=== PATIENT | female | born 1930 | race Caucasian/White ===

== ENCOUNTER 2018-07-26 11:53 | Observation (INO) | payer MEDICARE, BC ==
--- NOTE | 2018-07-26 12:07 | EDM.PDOC ---
ED HPI GENERAL MEDICAL PROBLEM - General Stated Complaint: CHEST TIGHTNESS Time Seen by Provider: 07/26/18 11:53 Source of Information: Reports: Patient, Family History Limitations: Reports: No Limitations - History of Present Illness INITIAL COMMENTS - FREE TEXT/NARRATIVE: 88 y.o.w.f with a h/o HTN cama to the ed with her family due to SSCP since 3 am. Pt rated her pressure about 8/10 Her BP ws 178/99 on arrival. No N/V/D or diaphoresis. Pt has EST 6 years ago which was neg. She had a cardiac echo as well. Pt states, the pain is inside her chest, constant. Pt denied any trauma. takes her meds as recommended. No N/V/d or dizziness or any other acute medical issues. 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: Reports: Acetaminophen chest pressure Pain Score (Numeric/FACES): 3 - Related Data Allergies Allergy/AdvReac Type Severity Reaction Status Date / Time No Known Allergies Allergy Verified 07/26/18 13:45 Home Meds: Home Meds ALPRAZolam [Alprazolam] 0.5 mg PO BEDTIME PRN 07/26/18 [History] Acetaminophen [Tylenol Extra Strength] 1,000 mg PO Q6HR PRN 07/26/18 [History] Aspirin [Adult Low Dose Aspirin EC] 81 mg PO DAILY 07/26/18 [History] Celecoxib 100 mg PO BID 07/26/18 [History] Docusate Sodium [Colace] 200 mg PO BEDTIME 07/26/18 [History] Gabapentin [Neurontin] 300 mg PO DAILY 07/26/18 [History] Gabapentin [Neurontin] 600 mg PO BEDTIME 07/26/18 [History] Hydrocortisone [Hydrocortisone 2.5% Crm] 1 applic TOP BID 07/26/18 [History] L.acidoph,Paracasei, B.lactis [Probiotic] 1 cap PO DAILY 07/26/18 [History] Losartan [Cozaar] 25 mg PO DAILY 07/26/18 [History] Magnesium 250 mg PO DAILY 07/26/18 [History] Metoprolol Succinate [Toprol XL] 25 mg PO DAILY 07/26/18 [History] [place]-3/DHA/Epa/Fish Oil [[place]-3 Fish Oil 1,000 MG Sfgl] 1,000 mg PO DAILY 08/04 [History] Omeprazole 40 mg PO DAILY 07/26/18 [History] Polyethylene Glycol 3350 [MiraLAX] 17 gm PO DAILY PRN 07/26/18 [History] amLODIPine [Norvasc] 2.5 mg PO DAILY 07/26/18 [History] atorvaSTATin [Lipitor] 40 mg PO BEDTIME 07/26/18 [History] ED ROS GENERAL - Review of Systems Review Of Systems: See Below Constitutional: Reports: No Symptoms HEENT: Reports: No Symptoms Respiratory: Reports: No Symptoms Cardiovascular: Reports: Chest Pain Endocrine: Reports: No Symptoms GI/Abdominal: Reports: No Symptoms : Reports: No Symptoms Musculoskeletal: Reports: No Symptoms Skin: Reports: No Symptoms Neurological: Reports: No Symptoms Psychiatric: Reports: No Symptoms Hematologic/Lymphatic: Reports: No Symptoms Immunologic: Reports: No Symptoms ED EXAM, GENERAL - Physical Exam Exam: See Below Exam Limited By: No Limitations General Appearance: Alert, WD/WN, Mild Distress Eye Exam: Bilateral Eye: Normal Inspection Ears: Normal External Exam Ear Exam: Bilateral Ear: Auricle Normal Nose: Normal Inspection, Normal Mucosa Throat/Mouth: Normal Inspection, Normal Lips, Normal Gums, Normal Voice, No Airway Compromise Head: Atraumatic, Normocephalic Neck: Normal Inspection, Supple, Non-Tender, Full Range of Motion Respiratory/Chest: No Respiratory Distress, Lungs Clear, Normal Breath Sounds, No Accessory Muscle Use, Chest Non-Tender Cardiovascular: Normal Peripheral Pulses, Regular Rate, Rhythm, No Edema, No Gallop, No JVD, No Murmur, No Rub GI/Abdominal: Normal Bowel Sounds, Soft, Non-Tender, No Organomegaly, No Distention, No Abnormal Bruit, No Mass, Pelvis Stable (Female) Exam: Deferred Rectal (Female) Exam: Deferred Back Exam: Normal Inspection, Full Range of Motion Extremities: Normal Inspection, Normal Range of Motion, Non-Tender, No Pedal Edema, Normal Capillary Refill Neurological: Alert, Oriented, CN II-XII Intact, Normal Cognition, Normal Gait, Normal Reflexes, No Motor/Sensory Deficits Psychiatric: Normal Affect, Normal Mood Skin Exam: Warm, Dry, Intact, Normal Color, No Rash Lymphatic: No Adenopathy EKG INTERPRETATION EKG Date: 07/26/18 Time: 12:00 Rhythm: NSR Rate (Beats/Min): 76 [place]: Normal P-Wave: Present QRS: Normal ST-T: Normal QT: Normal Comparison: NA - No Prior EKG EKG Interpretation Comments: peaked T waves Course - Vital Signs Text/Narrative:: 88 y.o.w.f with a h/o HTN cama to the ed with her family due to SSCP since 3 am. Pt rated her pressure about 8/10 Her BP ws 178/99 on arrival. No N/V/D or diaphoresis. Pt has EST 6 years ago which was neg. She had a cardiac echo as well. Pt states, the pain is inside her chest, constant. Pt denied any trauma. takes her meds as recommended. No N/V/d or dizziness or any other acute medical issues. BP 165/66 RR 18 Pulse ox 98 Temp 36.8 pulse 83 PE: WNWD W F with chest pressure Imaging: CXR port: NAD Labs: CBC, BMP (Na was 132!) and Troponin were nl ECG: Peaked t waves (?) Impression: Unstable angina Tx: ASA and NTD paste Reexam: CP subsided, BP still 164/78 on admission 12.55 pm Consultation: Dr. Salomon, Hospitalist: admit for obs, no Lovenox yet Plan: Admit for obs Last Recorded V/S: Last Vital Signs Temp 36.4 C 07/26/18 23:47 Pulse 64 07/26/18 23:47 Resp 15 07/26/18 23:47 BP 123/49 L 07/26/18 23:47 Pulse Ox 96 07/26/18 23:47 - Orders/Labs/Meds Orders: Active Orders 24 hr Category Date Time Status CXR [Chest 1V Frontal] [CR] Stat Exams 07/26/18 11:59 Taken EKG 12 Lead [EK] Routine Ther 07/26/18 11:59 Ordered Medication Orders Acetaminophen (Tylenol Extra Strength) 1,000 mg PO Q6H PRN PRN Reason: Pain Alprazolam (Xanax) 0.5 mg PO BEDTIME PRN PRN Reason: Sleep Last Admin: 07/26/18 21:27 Dose: 0.5 mg Amlodipine Besylate (Norvasc) 2.5 mg PO DAILY [facility] Aspirin (Halfprin) 81 mg PO DAILY [facility] Atorvastatin Calcium (Lipitor) 40 mg PO BEDTIME BERNY Last Admin: 07/26/18 20:03 Dose: 40 mg Celecoxib (Celebrex) 100 mg PO BID BERNY Last Admin: 07/26/18 20:03 Dose: Docusate Sodium (Colace) 200 mg PO BEDTIME BERNY Last Admin: 07/26/18 20:03 Dose: Gabapentin (Neurontin) 300 mg PO DAILY BERNY Gabapentin (Neurontin) 600 mg PO BEDTIME [facility] Last Admin: 07/26/18 20:03 Dose: 600 mg Hydrocortisone (Hydrocortisone 2.5% Crm) 0 gm TOP BID [facility] Last Admin: 07/26/18 20:03 Dose: Losartan Potassium (Cozaar) 25 mg PO DAILY [facility] Metoprolol Succinate (Toprol Xl) 25 mg PO DAILY [facility] Non-Formulary Medication (L.Acidoph,Paracasei, B.Lactis [Probiotic]) 1 cap PO DAILY [facility] Non-Formulary Medication (Magnesium [Magnesium]) 250 mg PO DAILY [facility] Non-Formulary Medication ([place]-3/Dha/Epa/Fish Oil [[place]-3 Fish Oil 1,000 Mg Sfgl]) 1,000 mg PO DAILY [facility] Non-Formulary Medication (Omeprazole [Omeprazole]) 40 mg PO DAILY [facility] Ondansetron HCl (Zofran Odt) 4 mg PO Q4H PRN PRN Reason: nausea, able to take PO Polyethylene Glycol (Miralax) 17 gm PO DAILY PRN PRN Reason: Constipation Labs: Laboratory Tests 07/26/18 07/26/18 07/26/18 Range/Units 12:10 12:10 12:10 WBC 8.5 (4.5-12.0) X10-3/uL RBC 4.60 (3.23-5.20) x10(6)uL Hgb 13.6 (11.5-15.5) g/dL Hct 40.7 (30.0-51.3) % MCV 88.6 (80-96) fL MCH 29.6 (27.7-33.6) pg MCHC 33.4 (32.2-35.4) g/dL RDW 13.0 (11.5-15.5) % Plt Count 269 (125-369) X10(3)uL MPV 8.4 (7.4-10.4) fL Neut % (Auto) 45.7 L (46-82) % Lymph % (Auto) 41.9 H (13-37) % [place] % (Auto) 8.5 (4-12) % Eos % (Auto) 3 (1.0-5.0) % Baso % (Auto) 1 (0-2) % Neut # (Auto) 3.8 (1.6-8.3) # Lymph # (Auto) 3.6 (0.6-5.0) # [place] # (Auto) 0.7 (0.0-1.3) # Eos # (Auto) 0.3 (0.0-0.8) # Baso # (Auto) 0.1 (0.0-0.2) # PT 9.3 (8.7-11.1) INR 0.96 (0.89-1.13) Sodium 132 L (135-145) mmol/L Potassium 4.0 (3.5-5.3) mmol/L Chloride 99 L (100-110) mmol/L Carbon Dioxide 28 (21-32) mmol/L BUN 6 L (7-18) mg/dL Creatinine 0.7 (0.55-1.02) mg/dL Est Cr Clr Drug Dosing TNP Estimated GFR (MDRD) > 60 (>60) BUN/Creatinine Ratio 8.6 L (9-20) Glucose 112 (80-116) mg/dL Calcium 9.0 (8.6-10.2) mg/dL Troponin I (<0.017-0.056) ng/mL 07/26/18 Range/Units 12:10 WBC (4.5-12.0) X10-3/uL RBC (3.23-5.20) x10(6)uL Hgb (11.5-15.5) g/dL Hct (30.0-51.3) % MCV (80-96) fL MCH (27.7-33.6) pg MCHC (32.2-35.4) g/dL RDW (11.5-15.5) % Plt Count (125-369) X10(3)uL MPV (7.4-10.4) fL Neut % (Auto) (46-82) % Lymph % (Auto) (13-37) % [place] % (Auto) (4-12) % Eos % (Auto) (1.0-5.0) % Baso % (Auto) (0-2) % Neut # (Auto) (1.6-8.3) # Lymph # (Auto) (0.6-5.0) # [place] # (Auto) (0.0-1.3) # Eos # (Auto) (0.0-0.8) # Baso # (Auto) (0.0-0.2) # PT (8.7-11.1) INR (0.89-1.13) Sodium (135-145) mmol/L Potassium (3.5-5.3) mmol/L Chloride (100-110) mmol/L Carbon Dioxide (21-32) mmol/L BUN (7-18) mg/dL Creatinine (0.55-1.02) mg/dL Est Cr Clr Drug Dosing Estimated GFR (MDRD) (>60) BUN/Creatinine Ratio (9-20) Glucose (80-116) mg/dL Calcium (8.6-10.2) mg/dL Troponin I < 0.017 L (<0.017-0.056) ng/mL Meds: Medications Generic Name Dose Route Start Last Admin Trade Name Freq PRN Reason Stop Dose Admin Acetaminophen 1,000 mg 07/26/18 18:46 Tylenol Extra Strength PO Q6H PRN Pain Alprazolam 0.5 mg 07/26/18 18:46 07/26/18 21:27 Xanax PO 0.5 mg BEDTIME PRN Administration Sleep Amlodipine Besylate 2.5 mg 07/27/18 09:00 Norvasc PO DAILY BERNY Aspirin 81 mg 07/27/18 09:00 Halfprin PO DAILY BERNY Atorvastatin Calcium 40 mg 07/26/18 21:00 07/26/18 20:03 Lipitor PO 40 mg BEDTIME BERNY Administration Celecoxib 100 mg 07/26/18 21:00 07/26/18 20:03 Celebrex PO Not Given BID BERNY Docusate Sodium 200 mg 07/26/18 21:00 07/26/18 20:03 Colace PO Not Given BEDTIME BERNY Gabapentin 300 mg 07/27/18 09:00 Neurontin PO DAILY BERNY Gabapentin 600 mg 07/26/18 21:00 07/26/18 20:03 Neurontin PO 600 mg BEDTIME BERNY Administration Hydrocortisone 0 gm 07/26/18 21:00 07/26/18 20:03 Hydrocortisone 2.5% Crm TOP Not Given BID [facility] Losartan Potassium 25 mg 07/27/18 09:00 Cozaar PO DAILY BERNY Metoprolol Succinate 25 mg 07/27/18 09:00 Toprol Xl PO DAILY [facility] Non-Formulary Medication 1 cap 07/27/18 09:00 L.Acidoph,Paracasei, B.Lactis [Probiotic] PO DAILY [facility] Non-Formulary Medication 250 mg 07/27/18 09:00 Magnesium [Magnesium] PO DAILY [facility] Non-Formulary Medication 1,000 mg 07/27/18 09:00 [place]-3/Dha/Epa/Fish Oil [[place]-3 Fish Oil 1,000 Mg Sfgl] PO DAILY [facility] Non-Formulary Medication 40 mg 07/27/18 09:00 Omeprazole [Omeprazole] PO DAILY [facility] Ondansetron HCl 4 mg 07/26/18 13:08 Zofran Odt PO Q4H PRN nausea, able to take PO Polyethylene Glycol 17 gm 07/26/18 18:46 Miralax PO DAILY PRN Constipation Discontinued Medications Generic Name Dose Route Start Last Admin Trade Name Freq PRN Reason Stop Dose Admin Aspirin 324 mg 07/26/18 12:27 07/26/18 12:52 Aspirin PO 07/26/18 12:28 243 mg ONETIME ONE Administration Enoxaparin Sodium 40 mg 07/26/18 13:15 07/26/18 15:18 Lovenox SUBCUT Not Given Q24H BERNY Levofloxacin 500 mg 07/26/18 15:11 07/26/18 17:22 Levaquin PO 07/26/18 15:12 Not Given ONETIME ONE Metronidazole 500 mg 07/26/18 15:11 07/26/18 17:22 Flagyl PO 07/26/18 15:12 Not Given ONETIME ONE Nitroglycerin 1 gm 07/26/18 12:27 07/26/18 12:40 Nitro-Bid 2% TOP 07/26/18 12:28 1 gm ONETIME ONE Administration Departure - Departure Time of Disposition: 12:00 Disposition: Admitted As Inpatient 67 Condition: Fair Clinical Impression: Chest pain Qualifiers: Chest pain type: unspecified Qualified Code(s): R07.9 - Chest pain, unspecified - My Orders Last 24 Hours: My Active Orders 07/26/18 11:59 CXR [Chest 1V Frontal] [CR] Stat EKG 12 Lead [EK] Routine - Assessment/Plan Last 24 Hours: My Active Orders 07/26/18 11:59 CXR [Chest 1V Frontal] [CR] Stat EKG 12 Lead [EK] Routine
[2018-07-26] MEDS ORDERED: Nitroglycerin 2% Oint 1 GM UD Packet TOP ONE (12:27)
[2018-07-26] MEDS ORDERED: Aspirin 81 MG Tab.Chew PO ONE (12:27)
[2018-07-26] MEDS ORDERED: Ondansetron 4 MG Tab.DIS PO PRN (13:08)
[2018-07-26] MEDS ORDERED: Enoxaparin 40 MG/0.4 ML Syringe SUBCUT SCH (13:15)
[2018-07-26] MEDS ORDERED: Levofloxacin 500 MG Tab PO ONE (15:11)
[2018-07-26] MEDS ORDERED: metroNIDAZOLE 500 MG Tab PO ONE (15:11)
--- NOTE | 2018-07-26 15:44 | PCM.HP ---
H&P History of Present Illness - General Date of Service: 07/26/18 Admit Problem/Dx: Admission Diagnosis/Problem Admission Diagnosis/Problem Unstable angina pectoris Source of Information: Patient History Limitations: Reports: No Limitations - History of Present Illness Initial Comments - Free Text/Narative: Amaya is an 88-year-old female complaining chest pressure. She described an "elephant" sitting on the chest, that started this morning got worse progressively. She had a similar episode on night that was associated with vomiting at the time. At the time of this history and physical pain is now resolved. She's been admitted to rule out acute coronary syndrome. She has a history of Gerd, anxiety and hypertension, all stable. She had a stress test years ago that was negative chest pressure Pain Score (Numeric/FACES): 3 - Related Data Allergies/Adverse Reactions: Allergies Allergy/AdvReac Type Severity Reaction Status Date / Time No Known Allergies Allergy Verified 07/26/18 13:45 Home Medications: Home Meds ALPRAZolam [Alprazolam] 0.5 mg PO BEDTIME PRN 07/26/18 [History] Acetaminophen [Tylenol Extra Strength] 1,000 mg PO Q6HR PRN 07/26/18 [History] Aspirin [Adult Low Dose Aspirin EC] 81 mg PO DAILY 07/26/18 [History] Celecoxib 100 mg PO BID 07/26/18 [History] Docusate Sodium [Colace] 200 mg PO BEDTIME 07/26/18 [History] Gabapentin [Neurontin] 300 mg PO DAILY 07/26/18 [History] Gabapentin [Neurontin] 600 mg PO BEDTIME 07/26/18 [History] Hydrocortisone [Hydrocortisone 2.5% Crm] 1 applic TOP BID 07/26/18 [History] L.acidoph,Paracasei, B.lactis [Probiotic] 1 cap PO DAILY 07/26/18 [History] Losartan [Cozaar] 25 mg PO DAILY 07/26/18 [History] Magnesium 250 mg PO DAILY 07/26/18 [History] Metoprolol Succinate [Toprol XL] 25 mg PO DAILY 07/26/18 [History] [place]-3/DHA/Epa/Fish Oil [[place]-3 Fish Oil 1,000 MG Sfgl] 1,000 mg PO DAILY 08/04 [History] Omeprazole 40 mg PO DAILY 07/26/18 [History] Polyethylene Glycol 3350 [MiraLAX] 17 gm PO DAILY PRN 07/26/18 [History] amLODIPine [Norvasc] 2.5 mg PO DAILY 07/26/18 [History] atorvaSTATin [Lipitor] 40 mg PO BEDTIME 07/26/18 [History] Past Medical History HEENT History: Reports: Glaucoma, Hard of Hearing, Other (See Below) Other HEENT History: vision not good glaucoma in left eye Cardiovascular History: Reports: Heart Failure, High Cholesterol, Hypertension, SOB on Exertion, Other (See Below) Other Cardiovascular History: stress test once Gastrointestinal History: Reports: Diverticulosis, Other (See Below) Other Gastrointestinal History: diverticulitis [employer] History: Reports: Musculoskeletal History: Reports: Arthritis, Back Pain, Chronic, Osteoporosis Neurological History: Reports: Headaches, Chronic Psychiatric History: Reports: Anxiety Endocrine/Metabolic History: Reports: Osteoporosis - Infectious Disease History Infectious Disease History: Reports: Chicken Pox, Measles, Shingles - Past Surgical History HEENT Surgical History: Reports: Cataract Surgery GI Surgical History: Reports: Cholecystectomy, Colonoscopy Social & Family History - Family History Family Medical History: Noncontributory - Tobacco Use Smoking Status *Q: Never Smoker Second Hand Smoke Exposure: No - Caffeine Use Caffeine Use: Reports: Coffee Other Caffeine Use: 2 cups - Recreational Drug Use Recreational Drug Use: No H&P Review of Systems - Review of Systems: Review Of Systems: ROS reveals no pertinent complaints other than HPI. Exam - Exam Exam: See Below - Vital Signs Vital Signs: Last Vital Signs Temp 97.6 F 07/26/18 14:20 Pulse 63 07/26/18 14:20 Resp 18 07/26/18 14:20 BP 157/80 H 07/26/18 14:20 Pulse Ox 97 07/26/18 14:20 Weight: 61.28 kg - Exam General: Alert, Oriented, 4 HEENT: PERRLA, Hearing Intact, Mucosa Moist & [place], Nares Patent, Normal Nasal Septum, Posterior Pharynx Clear, Conjunctiva Clear, EOMI, EACs Clear, TMs Clear Neck: Supple, Trachea Midline, 2 Lungs: Clear to Auscultation, Normal Respiratory Effort Cardiovascular: Regular Rate, Regular Rhythm GI/Abdominal Exam: Normal Bowel Sounds, Soft, Non-Tender, No Organomegaly, No Distention, No Abnormal Bruit, No Mass, Pelvis Stable (Female) Exam: Deferred Rectal (Female) Exam: Deferred Back Exam: Normal Inspection, Full Range of Motion, NT Extremities: Normal Inspection, Normal Range of Motion, Non-Tender, No Pedal Edema, Normal Capillary Refill Skin: Warm, Dry, Intact Neurological: Cranial Nerves Intact, Reflexes Equal Bilateral Neuro Extensive - Mental Status: Alert, Oriented x3, Normal Mood/Affect, Normal Cognition Neuro Extensive - Motor, Sensory, Reflexes: CN II-XII Intact, Normal Gait, Normal Reflexes Psychiatric: Alert, Normal Affect, Normal Mood - Patient Data Lab Results Last 24 hrs: Laboratory Results - last 24 hr 07/26/18 07/26/18 07/26/18 Range/Units 12:10 12:10 12:10 WBC 8.5 (4.5-12.0) X10-3/uL RBC 4.60 (3.23-5.20) x10(6)uL Hgb 13.6 (11.5-15.5) g/dL Hct 40.7 (30.0-51.3) % MCV 88.6 (80-96) fL MCH 29.6 (27.7-33.6) pg MCHC 33.4 (32.2-35.4) g/dL RDW 13.0 (11.5-15.5) % Plt Count 269 (125-369) X10(3)uL MPV 8.4 (7.4-10.4) fL Neut % (Auto) 45.7 L (46-82) % Lymph % (Auto) 41.9 H (13-37) % [place] % (Auto) 8.5 (4-12) % Eos % (Auto) 3 (1.0-5.0) % Baso % (Auto) 1 (0-2) % Neut # (Auto) 3.8 (1.6-8.3) # Lymph # (Auto) 3.6 (0.6-5.0) # [place] # (Auto) 0.7 (0.0-1.3) # Eos # (Auto) 0.3 (0.0-0.8) # Baso # (Auto) 0.1 (0.0-0.2) # PT 9.3 (8.7-11.1) INR 0.96 (0.89-1.13) Sodium 132 L (135-145) mmol/L Potassium 4.0 (3.5-5.3) mmol/L Chloride 99 L (100-110) mmol/L Carbon Dioxide 28 (21-32) mmol/L BUN 6 L (7-18) mg/dL Creatinine 0.7 (0.55-1.02) mg/dL Est Cr Clr Drug Dosing TNP Estimated GFR (MDRD) > 60 (>60) BUN/Creatinine Ratio 8.6 L (9-20) Glucose 112 (80-116) mg/dL Calcium 9.0 (8.6-10.2) mg/dL Troponin I (<0.017-0.056) ng/mL 07/26/18 Range/Units 12:10 WBC (4.5-12.0) X10-3/uL RBC (3.23-5.20) x10(6)uL Hgb (11.5-15.5) g/dL Hct (30.0-51.3) % MCV (80-96) fL MCH (27.7-33.6) pg MCHC (32.2-35.4) g/dL RDW (11.5-15.5) % Plt Count (125-369) X10(3)uL MPV (7.4-10.4) fL Neut % (Auto) (46-82) % Lymph % (Auto) (13-37) % [place] % (Auto) (4-12) % Eos % (Auto) (1.0-5.0) % Baso % (Auto) (0-2) % Neut # (Auto) (1.6-8.3) # Lymph # (Auto) (0.6-5.0) # [place] # (Auto) (0.0-1.3) # Eos # (Auto) (0.0-0.8) # Baso # (Auto) (0.0-0.2) # PT (8.7-11.1) INR (0.89-1.13) Sodium (135-145) mmol/L Potassium (3.5-5.3) mmol/L Chloride (100-110) mmol/L Carbon Dioxide (21-32) mmol/L BUN (7-18) mg/dL Creatinine (0.55-1.02) mg/dL Est Cr Clr Drug Dosing Estimated GFR (MDRD) (>60) BUN/Creatinine Ratio (9-20) Glucose (80-116) mg/dL Calcium (8.6-10.2) mg/dL Troponin I < 0.017 L (<0.017-0.056) ng/mL Result Diagrams: 07/26/18 12:10 07/26/18 12:10 EKG INTERPRETATION EKG Date: 07/26/18 Rhythm: NSR - Problem List (1) Chest pain SNOMED Code(s): 93703024 ICD Code: R07.9 - CHEST PAIN, UNSPECIFIED Status: Acute Current Visit: Yes Qualifiers: Chest pain type: unspecified Qualified Code(s): R07.9 - Chest pain, unspecified (2) HTN (hypertension) SNOMED Code(s): 23494141 ICD Code: I10 - ESSENTIAL (PRIMARY) HYPERTENSION Status: Chronic Current Visit: Yes Qualifiers: Hypertension type: essential hypertension Qualified Code(s): I10 - Essential (primary) hypertension (3) Anxiety SNOMED Code(s): 81202186 ICD Code: F41.9 - ANXIETY DISORDER, UNSPECIFIED Status: Acute Current Visit: Yes (4) HLD (hyperlipidemia) SNOMED Code(s): 87513699 ICD Code: E78.5 - HYPERLIPIDEMIA, UNSPECIFIED Status: Chronic Current Visit: Yes Qualifiers: Hyperlipidemia type: unspecified Qualified Code(s): E78.5 - Hyperlipidemia , unspecified (5) GERD (gastroesophageal reflux disease) SNOMED Code(s): 414807761 ICD Code: K21.9 - GASTRO-ESOPHAGEAL REFLUX DISEASE WITHOUT ESOPHAGITIS Status: Chronic Current Visit: Yes Qualifiers: Esophagitis presence: without esophagitis Qualified Code(s): K21.9 - Gastro -esophageal reflux disease without esophagitis (6) CHF (congestive heart failure) SNOMED Code(s): 49499039 ICD Code: I50.9 - HEART FAILURE, UNSPECIFIED Status: Chronic Current Visit: Yes Qualifiers: Heart failure type: combined systolic and diastolic Heart failure chronicity: chronic Qualified Code(s): I50.42 - Chronic combined systolic ( congestive) and diastolic (congestive) heart failure Problem List Initiated/Reviewed/Updated: Yes Orders Last 24hrs: Active Orders 24 hr Category Date Time Status Patient Status [ADT] Routine ADT 07/26/18 13:08 Active Cardiac Monitoring [RC] 08,16,00 Care 07/26/18 13:11 Active EKG Documentation Completion [RC] ASDIRECTED Care 07/26/18 15:39 Ordered Oxygen Therapy [RC] PRN Care 07/26/18 13:08 Active Up With Assistance [RC] 09,13,17,21 Care 07/26/18 13:08 Active Vital Signs [RC] 04,08,12,16,20,00 Care 07/26/18 13:08 Active 2 Gram Sodium Diet [DIET] Diet 07/26/18 Breakfast Ordered CXR [Chest 1V Frontal] [CR] Stat Exams 07/26/18 11:59 Taken CBC WITH AUTO DIFF [HEME] AM Lab 07/27/18 05:11 Ordered COMPREHENSIVE METABOLIC PN,CMP [CHEM] AM Lab 07/27/18 05:11 Ordered TROPONIN I [CHEM] AM Lab 07/27/18 05:11 Ordered Ondansetron [Zofran ODT] Med 07/26/18 13:08 Active 4 mg PO Q4H PRN Resuscitation Status Routine Resus Stat 07/26/18 13:08 Ordered EKG 12 Lead [EK] AM Ther 07/27/18 05:11 Ordered EKG 12 Lead [EK] Routine Ther 07/26/18 11:59 Ordered Medication Orders Ondansetron HCl (Zofran Odt) 4 mg PO Q4H PRN PRN Reason: nausea, able to take PO Assessment/Plan Comment:: I'll personally review the EKG and chest x-ray and find them unremarkable. I will start out on nitroglycerin when necessary, control her blood pressure, repeat EKG and troponin the morning.
[2018-07-26] MEDS ORDERED: Acetaminophen 500 MG Tab PO PRN (18:46)
[2018-07-26] MEDS ORDERED: ALPRAZolam 0.5 MG Tab PO PRN (18:46)
[2018-07-26] MEDS ORDERED: Polyethylene Glycol 3350 Powder 17 GM Packet PO PRN (18:46)
[2018-07-26] MEDS: CELECOXIB 100 MG PO SCH (20:03)
[2018-07-26] MEDS: Hydrocortisone 2.5% Crm 30 GM Tube TOP SCH (20:03)
[2018-07-26] MEDS ORDERED: ATORVASTATIN 40 MG PO SCH (21:00)
[2018-07-26] MEDS ORDERED: Docusate Sodium 100 MG Cap *PTOM PO SCH (21:00)
[2018-07-26] MEDS ORDERED: Gabapentin 300 MG Cap ** OWN MED PO SCH (21:00)
[2018-07-27] MEDS ORDERED: Non-Formulary Medication 1 Each (Magnesium [Magnesium] 250 MG) PO SCH (09:00)
[2018-07-27] MEDS ORDERED: OMEPRAZOLE 20 MG PO SCH (09:00)
[2018-07-27] MEDS ORDERED: Aspirin 81 MG Tab.EC PO SCH (09:00)
[2018-07-27] MEDS ORDERED: Losartan 25 MG Tab *PTOM PO SCH (09:00)
[2018-07-27] MEDS ORDERED: amLODIPine 2.5 MG Tab *PTOM PO SCH (09:00)
[2018-07-27] MEDS ORDERED: Metoprolol Succinate 25 MG Tab.ER *PTOM PO SCH (09:00)
[2018-07-27] MEDS ORDERED: Non-Formulary Medication 1 Each (Omega-3/Dha/Epa/Fish Oil [Omega-3 Fish Oil 1,000 Mg Sfgl] PO SCH (09:00)
[2018-07-27] MEDS ORDERED: Non-Formulary Medication 1 Each (L.Acidoph,Paracasei, B.Lactis [Probiotic] 1 CAP) PO SCH (09:00)
[2018-07-27] MEDS ORDERED: Gabapentin 300 MG Cap ** OWN MED PO SCH (09:00)
--- NOTE | 2018-07-27 09:09 | PCM.PN ---
- General Info Date of Service: 07/27/18 Subjective Update: Amaya is pain-free. No shortness of breath nausea or vomiting. - Review of Systems Pulmonary: Reports: No Symptoms Cardiovascular: Reports: No Symptoms Gastrointestinal: Reports: No Symptoms Genitourinary: Reports: No Symptoms - Patient Data Vitals - Most Recent: Last Vital Signs Temp 97.4 F 07/27/18 04:00 Pulse 71 07/27/18 04:00 Resp 17 07/27/18 04:00 BP 124/61 07/27/18 04:00 Pulse Ox 95 07/27/18 04:00 Weight - Most Recent: 61.28 kg Lab Results Last 24 Hours: Laboratory Results - last 24 hr 07/26/18 07/26/18 07/26/18 Range/Units 12:10 12:10 12:10 WBC 8.5 (4.5-12.0) X10-3/uL RBC 4.60 (3.23-5.20) x10(6)uL Hgb 13.6 (11.5-15.5) g/dL Hct 40.7 (30.0-51.3) % MCV 88.6 (80-96) fL MCH 29.6 (27.7-33.6) pg MCHC 33.4 (32.2-35.4) g/dL RDW 13.0 (11.5-15.5) % Plt Count 269 (125-369) X10(3)uL MPV 8.4 (7.4-10.4) fL Neut % (Auto) 45.7 L (46-82) % Lymph % (Auto) 41.9 H (13-37) % [place] % (Auto) 8.5 (4-12) % Eos % (Auto) 3 (1.0-5.0) % Baso % (Auto) 1 (0-2) % Neut # (Auto) 3.8 (1.6-8.3) # Lymph # (Auto) 3.6 (0.6-5.0) # [place] # (Auto) 0.7 (0.0-1.3) # Eos # (Auto) 0.3 (0.0-0.8) # Baso # (Auto) 0.1 (0.0-0.2) # PT 9.3 (8.7-11.1) INR 0.96 (0.89-1.13) Sodium 132 L (135-145) mmol/L Potassium 4.0 (3.5-5.3) mmol/L Chloride 99 L (100-110) mmol/L Carbon Dioxide 28 (21-32) mmol/L BUN 6 L (7-18) mg/dL Creatinine 0.7 (0.55-1.02) mg/dL Est Cr Clr Drug Dosing TNP Estimated GFR (MDRD) > 60 (>60) BUN/Creatinine Ratio 8.6 L (9-20) Glucose 112 (80-116) mg/dL Calcium 9.0 (8.6-10.2) mg/dL Total Bilirubin (0.1-1.3) mg/dL AST (5-25) IU/L ALT (12-36) U/L Alkaline Phosphatase (56-112) IU/L Troponin I (<0.017-0.056) ng/mL Total Protein (6.0-8.0) g/dL Albumin (3.2-4.6) g/dL Globulin g/dL Albumin/Globulin Ratio 07/26/18 07/27/18 07/27/18 Range/Units 12:10 06:22 06:22 WBC 5.8 (4.5-12.0) X10-3/uL RBC 4.39 (3.23-5.20) x10(6)uL Hgb 13.2 (11.5-15.5) g/dL Hct 38.8 (30.0-51.3) % MCV 88.5 (80-96) fL MCH 30.0 (27.7-33.6) pg MCHC 33.9 (32.2-35.4) g/dL RDW 12.9 (11.5-15.5) % Plt Count 230 (125-369) X10(3)uL MPV 8.6 (7.4-10.4) fL Neut % (Auto) 42.8 L (46-82) % Lymph % (Auto) 43.1 H (13-37) % [place] % (Auto) 9.5 (4-12) % Eos % (Auto) 4 (1.0-5.0) % Baso % (Auto) 1 (0-2) % Neut # (Auto) 2.5 (1.6-8.3) # Lymph # (Auto) 2.4 (0.6-5.0) # [place] # (Auto) 0.6 (0.0-1.3) # Eos # (Auto) 0.2 (0.0-0.8) # Baso # (Auto) 0.1 (0.0-0.2) # PT (8.7-11.1) INR (0.89-1.13) Sodium 137 (135-145) mmol/L Potassium 4.2 (3.5-5.3) mmol/L Chloride 103 (100-110) mmol/L Carbon Dioxide 31 (21-32) mmol/L BUN 5 L (7-18) mg/dL Creatinine 0.7 (0.55-1.02) mg/dL Est Cr Clr Drug Dosing 46.84 Estimated GFR (MDRD) > 60 (>60) BUN/Creatinine Ratio 7.1 L (9-20) Glucose 92 (80-116) mg/dL Calcium 8.8 (8.6-10.2) mg/dL Total Bilirubin 0.4 (0.1-1.3) mg/dL AST 23 (5-25) IU/L ALT 18 (12-36) U/L Alkaline Phosphatase 108 (56-112) IU/L Troponin I < 0.017 L (<0.017-0.056) ng/mL Total Protein 6.1 (6.0-8.0) g/dL Albumin 2.7 L (3.2-4.6) g/dL Globulin 3.4 g/dL Albumin/Globulin Ratio 0.8 07/27/18 Range/Units 06:22 WBC (4.5-12.0) X10-3/uL RBC (3.23-5.20) x10(6)uL Hgb (11.5-15.5) g/dL Hct (30.0-51.3) % MCV (80-96) fL MCH (27.7-33.6) pg MCHC (32.2-35.4) g/dL RDW (11.5-15.5) % Plt Count (125-369) X10(3)uL MPV (7.4-10.4) fL Neut % (Auto) (46-82) % Lymph % (Auto) (13-37) % [place] % (Auto) (4-12) % Eos % (Auto) (1.0-5.0) % Baso % (Auto) (0-2) % Neut # (Auto) (1.6-8.3) # Lymph # (Auto) (0.6-5.0) # [place] # (Auto) (0.0-1.3) # Eos # (Auto) (0.0-0.8) # Baso # (Auto) (0.0-0.2) # PT (8.7-11.1) INR (0.89-1.13) Sodium (135-145) mmol/L Potassium (3.5-5.3) mmol/L Chloride (100-110) mmol/L Carbon Dioxide (21-32) mmol/L BUN (7-18) mg/dL Creatinine (0.55-1.02) mg/dL Est Cr Clr Drug Dosing Estimated GFR (MDRD) (>60) BUN/Creatinine Ratio (9-20) Glucose (80-116) mg/dL Calcium (8.6-10.2) mg/dL Total Bilirubin (0.1-1.3) mg/dL AST (5-25) IU/L ALT (12-36) U/L Alkaline Phosphatase (56-112) IU/L Troponin I < 0.017 L (<0.017-0.056) ng/mL Total Protein (6.0-8.0) g/dL Albumin (3.2-4.6) g/dL Globulin g/dL Albumin/Globulin Ratio Med Orders - Current: Current Medications Acetaminophen (Tylenol Extra Strength) 1,000 mg PO Q6H PRN PRN Reason: Pain Alprazolam (Xanax) 0.5 mg PO BEDTIME PRN PRN Reason: Sleep Last Admin: 07/26/18 21:27 Dose: 0.5 mg Amlodipine Besylate (Norvasc) 2.5 mg PO DAILY [facility] Aspirin (Halfprin) 81 mg PO DAILY [facility] Atorvastatin Calcium (Lipitor) 40 mg PO BEDTIME BERNY Last Admin: 07/26/18 20:03 Dose: 40 mg Celecoxib (Celebrex) 100 mg PO BID BRENY Last Admin: 07/26/18 20:03 Dose: Not Given Docusate Sodium (Colace) 200 mg PO BEDTIME [facility] Last Admin: 07/26/18 20:03 Dose: Not Given Gabapentin (Neurontin) 300 mg PO DAILY [facility] Gabapentin (Neurontin) 600 mg PO BEDTIME [facility] Last Admin: 07/26/18 20:03 Dose: 600 mg Hydrocortisone (Hydrocortisone 2.5% Crm) 0 gm TOP BID [facility] Last Admin: 07/26/18 20:03 Dose: Not Given Losartan Potassium (Cozaar) 25 mg PO DAILY [facility] Metoprolol Succinate (Toprol Xl) 25 mg PO DAILY [facility] Non-Formulary Medication (L.Acidoph,Paracasei, B.Lactis [Probiotic]) 1 cap PO DAILY [facility] Non-Formulary Medication (Magnesium [Magnesium]) 250 mg PO DAILY [facility] Non-Formulary Medication ([place]-3/Dha/Epa/Fish Oil [[place]-3 Fish Oil 1,000 Mg Sfgl]) 1,000 mg PO DAILY [facility] Omeprazole 20mg Caps (*Ptom) 0 mg PO DAILY@0600 [facility] Ondansetron HCl (Zofran Odt) 4 mg PO Q4H PRN PRN Reason: nausea, able to take PO Polyethylene Glycol (Miralax) 17 gm PO DAILY PRN PRN Reason: Constipation Discontinued Medications Aspirin (Aspirin) 324 mg PO ONETIME ONE Stop: 07/26/18 12:28 Last Admin: 07/26/18 12:52 Dose: 243 mg Enoxaparin Sodium (Lovenox) 40 mg SUBCUT Q24H [facility] Last Admin: 07/26/18 15:18 Dose: Not Given Levofloxacin (Levaquin) 500 mg PO ONETIME ONE Stop: 07/26/18 15:12 Last Admin: 07/26/18 17:22 Dose: Not Given Metronidazole (Flagyl) 500 mg PO ONETIME ONE Stop: 07/26/18 15:12 Last Admin: 07/26/18 17:22 Dose: Not Given Nitroglycerin (Nitro-Bid 2%) 1 gm TOP ONETIME ONE Stop: 07/26/18 12:28 Last Admin: 07/26/18 12:40 Dose: 1 gm - Exam General: Alert, Oriented HEENT: Pupils Equal Neck: Supple Lungs: Clear to Auscultation Cardiovascular: Regular Rate, Regular Rhythm - Problem List & Annotations (1) Chest pain SNOMED Code(s): 22485918 Code(s): R07.9 - CHEST PAIN, UNSPECIFIED Status: Acute Current Visit: Yes Qualifiers: Chest pain type: unspecified Qualified Code(s): R07.9 - Chest pain, unspecified (2) HTN (hypertension) SNOMED Code(s): 18357311 Code(s): I10 - ESSENTIAL (PRIMARY) HYPERTENSION Status: Chronic Current Visit: Yes Qualifiers: Hypertension type: essential hypertension Qualified Code(s): I10 - Essential (primary) hypertension (3) Anxiety SNOMED Code(s): 78241066 Code(s): F41.9 - ANXIETY DISORDER, UNSPECIFIED Status: Acute Current Visit: Yes (4) HLD (hyperlipidemia) SNOMED Code(s): 96209525 Code(s): E78.5 - HYPERLIPIDEMIA, UNSPECIFIED Status: Chronic Current Visit: Yes Qualifiers: Hyperlipidemia type: unspecified Qualified Code(s): E78.5 - Hyperlipidemia , unspecified (5) GERD (gastroesophageal reflux disease) SNOMED Code(s): 669141209 Code(s): K21.9 - GASTRO-ESOPHAGEAL REFLUX DISEASE WITHOUT ESOPHAGITIS Status: Chronic Current Visit: Yes Qualifiers: Esophagitis presence: without esophagitis Qualified Code(s): K21.9 - Gastro -esophageal reflux disease without esophagitis (6) CHF (congestive heart failure) SNOMED Code(s): 46327653 Code(s): I50.9 - HEART FAILURE, UNSPECIFIED Status: Chronic Current Visit : Yes Qualifiers: Heart failure type: combined systolic and diastolic Heart failure chronicity: chronic Qualified Code(s): I50.42 - Chronic combined systolic ( congestive) and diastolic (congestive) heart failure - Problem List Review Problem List Initiated/Reviewed/Updated: Yes - My Orders Last 24 Hours: My Active Orders 07/27/18 05:11 EKG 12 Lead [EK] AM - Plan Plan:: I'll personally review the EKG this morning it looks unchanged. Trop is within reference range.Will DC home. Follow up with Thu Smith,for consideration of stress testing
[2018-07-27] MEDS: CELECOXIB 100 MG PO SCH (09:41)
[2018-07-27] MEDS: Hydrocortisone 2.5% Crm 30 GM Tube TOP SCH (09:44)
--- NOTE | 2018-07-27 11:22 | CR ---
INDICATION: Chest pain. CHEST: An AP portable upright view of the chest was obtained 07/26/2018 - no comparisons were available. The heart is normal in size and shape. The aorta is somewhat tortuous with calcification in the arch. Overlying EKG leads are noted. Flattened diaphragm leaves and hyperaeration suggest COPD. An active infiltrate or effusion was not identified. 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 Degenerative changes are noted at the AC joint on that side also. IMPRESSION: No acute process. MTDD
== END 2018-07-27 10:30 | disposition home or self-care (01) ==
LOC: FB.ED 11:53 → FB.MS 13:08
PROVIDERS: ADMIT Family Medicine; ATTEND Family Medicine
DX: R07.9 Chest pain, unspecified (principal); I11.0 Hypertensive heart disease with heart failure; I50.42 Chronic combined systolic (congestive) and diastolic (congestive) heart failure; K21.9 Gastro-esophageal reflux disease without esophagitis; E78.5 Hyperlipidemia, unspecified; F41.9 Anxiety disorder, unspecified; Z79.82 Long term (current) use of aspirin; Z79.899 Other long term (current) drug therapy
CPT/HCPCS: 36415; 71045; 80048; 80053; 84484; 85025; 85610; 93005; 99217; 99219; 99285; A9270-GY; G0378

== ENCOUNTER 2021-06-11 13:03 | Emergency (ER) | payer MEDICARE ==
--- NOTE | 2021-06-11 14:07 | EDM.PDOC ---
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, no gait stability issues, no neuro c/o now saw PCP 11d ago with stomach cramps, CT abd reported neg, he had her increase GERD med to BID and added a med that begins with "d" 30 min before meals, stomach cramps gone BM qAM, usually small, had BM this AM - Related Data Allergies Allergy/AdvReac Type Severity Reaction Status Date / Time No Known Allergies Allergy Verified 07/26/18 13:45 Home Meds: Home Meds ALPRAZolam [Alprazolam] 0.5 mg PO BEDTIME PRN 07/26/18 [History] Acetaminophen [Tylenol Extra Strength] 1,000 mg PO Q6HR PRN 07/26/18 [History] Aspirin [Adult Low Dose Aspirin EC] 81 mg PO DAILY 07/26/18 [History] Celecoxib 100 mg PO BID 07/26/18 [History] Docusate Sodium [Colace] 200 mg PO BEDTIME 07/26/18 [History] Gabapentin [Neurontin] 300 mg PO DAILY 07/26/18 [History] Gabapentin [Neurontin] 600 mg PO BEDTIME 07/26/18 [History] Hydrocortisone [Hydrocortisone 2.5% Crm] 1 applic TOP BID 07/26/18 [History] L.acidoph,Paracasei, B.lactis [Probiotic] 1 cap PO DAILY 07/26/18 [History] Losartan [Cozaar] 25 mg PO DAILY 07/26/18 [History] Magnesium 250 mg PO DAILY 07/26/18 [History] Metoprolol Succinate [Toprol XL] 25 mg PO DAILY 07/26/18 [History] [place]-3/DHA/Epa/Fish Oil [[place]-3 Fish Oil 1,000 MG Sfgl] 1,000 mg PO DAILY 07/26/18 [History] Omeprazole 40 mg PO DAILY 07/26/18 [History] amLODIPine [Norvasc] 2.5 mg PO DAILY 07/26/18 [History] atorvaSTATin [Lipitor] 40 mg PO BEDTIME 07/26/18 [History] polyethylene glycoL 3350 [MiraLAX] 17 gm PO DAILY PRN 07/26/18 [History] Past Medical History HEENT History: Reports: Glaucoma, Hard of Hearing, Other (See Below) Other HEENT History: vision not good glaucoma in left eye Cardiovascular History: Reports: Heart Failure, High Cholesterol, Hypertension, SOB on Exertion, Other (See Below) Other Cardiovascular History: stress test once Gastrointestinal History: Reports: Diverticulosis, Other (See Below) Other Gastrointestinal History: diverticulitis [employer] History: Reports: Musculoskeletal History: Reports: Arthritis, Back Pain, Chronic, Osteoporosis Neurological History: Reports: Headaches, Chronic Psychiatric History: Reports: Anxiety Endocrine/Metabolic History: Reports: Osteoporosis - Infectious Disease History Infectious Disease History: Reports: Chicken Pox, Measles, Shingles - Past Surgical History HEENT Surgical History: Reports: Cataract Surgery GI Surgical History: Reports: Cholecystectomy, Colonoscopy Social & Family History - Family History Family Medical History: No Pertinent Family History - Caffeine Use Caffeine Use: Reports: Coffee Other Caffeine Use: 2 cups ED ROS GENERAL - Review of Systems Review Of Systems: See Below Constitutional: Reports: No Symptoms HEENT: Reports: No Symptoms Respiratory: Reports: No Symptoms Cardiovascular: Reports: No Symptoms Endocrine: Reports: No Symptoms GI/Abdominal: Reports: No Symptoms : Reports: No Symptoms Musculoskeletal: Reports: Other (sacral pain) Skin: Reports: No Symptoms Neurological: Reports: No Symptoms Psychiatric: Reports: No Symptoms Hematologic/Lymphatic: Reports: No Symptoms Immunologic: Reports: No Symptoms ED EXAM, GENERAL - Physical Exam Exam: See Below Exam Limited By: No Limitations General Appearance: Alert, WD/WN, No Apparent Distress, Other (nonill) Eye Exam: Bilateral Eye: EOMI, PERRL Nose: Normal Inspection, Normal Mucosa, No Blood Throat/Mouth: Normal Inspection, Normal Lips, Normal Teeth, Normal Voice, No Airway Compromise Head: Atraumatic, Normocephalic Neck: Normal Inspection, Supple, Non-Tender, Full Range of Motion Respiratory/Chest: No Respiratory Distress, Lungs Clear, Normal Breath Sounds, Chest Non-Tender Cardiovascular: Regular Rate, Rhythm, No Edema, No Murmur GI/Abdominal: Soft, Non-Tender, No Organomegaly, No Distention Back Exam: Normal Inspection, Full Range of Motion, Other (1+ tender in the mid sacrum in midline, 1+ tender at R SI joint). No: CVA Tenderness (R), CVA Tenderness (L) Extremities: Normal Inspection, Normal Range of Motion, Non-Tender, No Pedal Edema Neurological: Alert, Oriented, CN II-XII Intact, Normal Cognition, Normal Gait, No Motor/Sensory Deficits Psychiatric: Normal Affect, Normal Mood Skin Exam: Warm, Dry, Intact, Normal Color, No Rash Lymphatic: No Adenopathy Course - Vital Signs Last Recorded V/S: Last Vital Signs Temp 37.2 C 06/11/21 13:28 Pulse 79 06/11/21 13:28 Resp 16 06/11/21 13:28 BP 151/60 H 06/11/21 13:28 Pulse Ox 95 06/11/21 13:28 - Re-Assessments/Exams Free Text/Narrative Re-Assessment/Exam: 06/11/21 14:27 neuro exam wnl 5h after fall mechanical fall by description recent labs last week by PCP reported neg no localized findings except contusion Departure - Departure Time of Disposition: 14:02 Disposition: Home, Self-Care 01 Condition: Good Clinical Impression: Sacral contusion, Fall - Discharge Information *PRESCRIPTION DRUG MONITORING PROGRAM REVIEWED*: Not Applicable *COPY OF PRESCRIPTION DRUG MONITORING REPORT IN PATIENT LINN: Not Applicable Instructions: Contusion Additional Instructions: Continue acetaminophen, maximum of 4,000 mg in 24 hours. Use ice for 10 minutes every 2 hours as needed for 2 days. While unlike, if you have severe headache, persistent nausea and vomiting, or clumsiness, call or return to Emergency Department. Sepsis Event Note (ED) - Evaluation Sepsis Screening Result: No Definite Risk - Focused Exam Vital Signs: Vital Signs Temp Pulse Resp BP Pulse Ox 06/11/21 13:28 37.2 C 79 16 151/60 H 95
== END 2021-06-11 14:15 | disposition home or self-care (01) ==
LOC: FB.ED 13:03
DX: S30.0XXA Contusion of lower back and pelvis, initial encounter (principal); I11.0 Hypertensive heart disease with heart failure; I50.9 Heart failure, unspecified; E78.00 Pure hypercholesterolemia, unspecified; M19.90 Unspecified osteoarthritis, unspecified site; Z79.82 Long term (current) use of aspirin; Z79.899 Other long term (current) drug therapy; W01.0XXA Fall on same level from slipping, tripping and stumbling without subsequent striking against object, initial encounter; Y92.009 Unspecified place in unspecified non-institutional (private) residence as the place of occurrence of the external cause
CPT/HCPCS: 99283